=== PATIENT | female | born 1980 | race Asian ===

== ENCOUNTER → 2020-02-15 | Outpatient (CLI) | payer MEDICAID | LOC: ZCOL.LAB 08:00 | DX: Z20.828 Contact with and (suspected) exposure to other viral communicable diseases (principal) ==

== ENCOUNTER 2020-02-19 07:46 | Inpatient (IN) | payer MEDICAID ==
[~2020-02-19] VITALS: Ht 165.1 cm; Wt 79.1 kg
[2020-02-19] VITALS (26 sets, daily range): BP systolic 80–120; BP diastolic 47–75; PULSE 62–100; TEMP 98.4
[2020-02-19 09:20] LABS: BASO % 0.4 % (0.0-2.0); EOS # 0.2 (0.0-0.7); EOS % 1.7 % (0-4.0); GRAN # 6.4 (1.4-6.5); GRAN % 70.1 % (42.2-75.2); HEMATOCRIT 32.7 % (37.0-47.0); HEMOGLOBIN 10.7 g/dl (12.5-16.0); LYMPH # 1.9 (1.2-3.4); LYMPH % 20.5 % (20.0-51.0); MEAN CELL VOLUME 85 fl (80.0-100.0); MEAN CORPUSCULAR HEMOGLOBIN 28 pg (27.0-31.0); MEAN CORPUSCULAR HGB CONC 33 g/dl (33.0-37.0); MEAN PLATELET VOLUME 11.6 fl (7.4-10.4); MONO # 0.6 (0.1-0.6); MONO % 6.6 % (1.7-9.3); PLATELET COUNT 163 K/mm3 (130-400); RED BLOOD COUNT 3.84 M/mm3 (4.10-5.30)
--- NOTE | 2020-02-19 09:25 | NUR ---
Pt and spouse arrived ambulatory to unit at 0800. Pt placed gown over personal clothing and sat in bed when asked. Pt and spouse speak no croatian, dielectric embossing machine operator via phone service used for communication. EFM explained and placed, vitals taken. Pt denies vaginal bleeding or leaking of fluid, reports good movement, and denies contractions. IV started in LW, labs drawn, LR started per protocol. Assessment completed, consents discussed and verbal consent given. Pt signed with x as she stated she does not know how to write her name. Pt and spouse also request circumcision for baby boy. 08 - Roles to pt bedside. Communication via phone dielectric embossing machine operator with pt. SVE and AROM attempted, but pt bladder full. Physician requests pt use bathroom. 09 - Pt voided and back to bed. Roles back at bedside. AROM at this time, clear fluid noted. SVE per physician 4-/-2. No plan for pitocin at this time.
--- NOTE | 2020-02-19 11:52 | NUR ---
Over documentation interval of [id number], baseline change from 145 to 150 at 1042, then again from 150 to 155 at 1054. Pt repositioning self often over interval. Variable decels noted at 1048 and 1053. 1104 - Pt off monitors to use bathroom. 1108 - Pt back on monitors with baseline of 150 Acceleration of FHR noted at 1119, returning to baseline of 150 at 1123. Acceleration with contraction noted at [id number], followed by shallow late deceleration with FHR christie of 135, then returning to previous baseline of 145.
--- NOTE | 2020-02-19 16:41 | NUR ---
1530 - 1600 documentation interval baseline FHR started at 145 with variable decel noted at 1528. Following contraction at 1543, FHR baseline changed to 135. Moderate variability remains. Pt repositioned self at 1552, FHR monitor documenting maternal heart rate at 1555. Monitors repositioned and returned to monitoring FHR at 1556.
--- NOTE | 2020-02-19 16:47 | NUR ---
1606 - Dr. Orona on unit. SVE per physician 5-/-2. Orders received to start pitocin per induction protocol. Pitocin started at 2mu/ml/hr at 1616. Dr. Orona remains on unit.
--- NOTE | 2020-02-19 18:38 | NUR ---
173 - SVE /1. Recurrent early decelerations with contractions, FHR baseline remains [address] Orona remains on unit and monitoring FHR. Pt feeling pressure with contractions and increasing discomfort. 1744 - Pt repositioned RL. 1746 - Dr. Orona to pt bedsdie. SVE per provider -/-1. Physician remains in room at pt bedside. Pt repositioned in bed with feet in stirrups, bed broken down for delivery per physician. Retail Loan Originator Assistant on speaker phone for communication with pt. 1757 - SVE per Dr. Orona 0. Nursery RN called to bedside. Pt pushing with contractions with RN and physician at bedside. 1805 - Male infant delivered spontaneously after 40 second shoulder dystocia by Dr. Orona. Loose nuchal x1, left hand presentation with shoulder. placed on mother's abdomen where cord clamped and cut. Care of infant transferred to Jannet Roldan RN of nursery. Cord blood and gases collected by Dr. Orona. Placenta spontaneously delivered by Dr. Orona at 1809. Pitocin started per protocol. Perineum intact per Dr. Orona, pericare provided by physician. 1814 - Pt repositioned for comfort, ice pack placed on perineum. Pt requests pain medication but denies further needs at this time. Care of pt transferred to Jennifer Kaur RN.
--- NOTE | 2020-02-19 20:00 | NUR ---
Using [employer] tele[employer] manager for translation and instruction. Pt up to the bathroom with standby assist. Pt unable to void as urine was expressed during previous fundal check. Faith-care done. Pt transferred to room 215 ambulatory. Oriented to room, bed and call light within reach.
[2020-02-20 00:30] VITALS: BP 89/53; PULSE 68; TEMP 98.3
[2020-02-20 04:15] VITALS: BP 89/59; PULSE 68; TEMP 98.2
[2020-02-20] MEDS ORDERED: IBU600 MG PO (08:24)
[2020-02-20 08:30] VITALS: BP 95/57; PULSE 73; TEMP 97.8
[2020-02-20 16:43] VITALS: BP 97/75; PULSE 89; TEMP 98.3
--- NOTE | 2020-02-20 20:30 | NUR ---
RN TO BEDSIDE WITH OPHTHALMIC TECHNICIAN APPRENTICE SERVICES ON THE PHONE. DISCUSSED DISCHARGE INSTRUCTIONS WITH PATIENT THROUGH OPHTHALMIC TECHNICIAN APPRENTICE. ANSWERED QUESTIONS AND PATIENT VERBALIZED UNDERSTANDING. SIGNED PAPERS WITH AN 'X' BECAUSE PATIENT DOES NOT SPEAK, READ OR WRITE GUINEAN.
== END 2020-02-20 20:50 | disposition home or self-care (01) | DRG 807 ==
LOC: OB 07:46 → LDR 07:47 → OB 07:47 → LDR 14:20 → OB 20:34
PROVIDERS: ADMIT Obstetrics & Gynecology
PROC: 10E0XZZ Delivery of Products of Conception, External Approach (ICD-10-PCS; principal; 2020-02-19)
DX: O66.0 Obstructed labor due to shoulder dystocia (principal); Z37.0 Single live birth; Z3A.40 40 weeks gestation of pregnancy; Z3A.39 39 weeks gestation of pregnancy
CPT/HCPCS: J2590; J7120

== ENCOUNTER → 2020-06-24 | Outpatient (CLI) | payer MEDICAID ==
[~2020-06-24] MED LIST: IBU600 MG PO
== END ==
LOC: COL.RAD 09:57
DX: M54.5 Low back pain (principal); M54.6 Pain in thoracic spine; M53.3 Sacrococcygeal disorders, not elsewhere classified; Z97.5 Presence of (intrauterine) contraceptive device

== ENCOUNTER 2021-06-07 13:19 | Emergency (ER) | payer MEDICAID ==
[~2021-06-07] VITALS: Ht 170.2 cm; Wt 84.1 kg
[2021-06-07 13:25] VITALS: TEMP 97.7
[2021-06-07 13:59] LABS: BASO # 0.1 K/mm3 (0.0-0.2); BASO % 0.8 % (0.0-2.0); EOS # 0.2 K/mm3 (0.0-0.7); EOS % 3.1 % (0.0-4.0); GRAN # 3.5 K/mm3 (1.4-6.5); GRAN % 53.5 % (42.2-75.2); HEMOGLOBIN 10.9 g/dl (12.5-16.0); LYMPH # 2.3 K/mm3 (1.2-3.4); LYMPH % 35.1 % (20.0-51.0); MEAN CELL VOLUME 80 fl (80.0-100.0); MEAN CORPUSCULAR HEMOGLOBIN 26 pg (27-31); MEAN CORPUSCULAR HGB CONC 33 g/dl (33.0-37.0); MEAN PLATELET VOLUME 10.7 fl (7.4-10.4); MONO # 0.5 K/mm3 (0.1-0.6); MONO % 7.2 % (1.7-9.3); PLATELET COUNT 205 K/mm3 (130-400); RED BLOOD COUNT 4.13 M/mm3 (4.10-5.30)
[2021-06-07 14:02] LABS: HEMATOCRIT 33.1 % (37.0-47.0)
[2021-06-07 14:07] LABS: ALANINE AMINOTRANSFERASE 44 U/L (0-55); ALBUMIN 3.9 gm/dL (3.5-5.0); ALKALINE PHOSPHATASE 82 U/L (40-150); ANION GAP 11 mmol/L (7-16); AST,SGOT 59 U/L (5-34); BILIRUBIN,TOTAL 0.3 mg/dL (0.2-1.2); BLOOD UREA NITROGEN 16 mg/dL (7-19); CALCIUM 8.9 mg/dL (8.4-10.2); CARBON DIOXIDE 22 mmol/L (22-29); CHLORIDE 106 mmol/L (98-107); CREATININE, serum 0.65 mg/dL (0.57-1.11); GLUCOSE 98 mg/dL (70-99); LIPASE 22 U/L (8-78); POTASSIUM 3.6 mmol/L (3.5-4.5); SODIUM 139 mmol/L (136-145); TOTAL PROTEIN 7.1 gm/dL (6.2-8.1)
[2021-06-07 14:15] LABS: TROPONIN-I < 0.010 ng/mL (0.00-0.033)
[2021-06-07 14:55] LABS: COLLECTION METHOD CLEAN CATCH
[2021-06-07 15:13] LABS: PH 6 (5-8); SQUAMOUS EPITHELIAL 0-2 /hpf (0-10); URINE APPEARANCE Clear (CLEAR/HAZY); URINE BACTERIA None Seen /hpf (NONE SEEN); URINE BILIRUBIN Negative (NEGATIVE); URINE BLOOD Negative (NEGATIVE); URINE COLOR Straw (YELLOW); URINE GLUCOSE Negative (NEGATIVE); URINE KETONE Negative (NEGATIVE); URINE LEUKOCYTE ESTERASE Negative (NEGATIVE); URINE NITRATE Negative (NEGATIVE); URINE PROTEIN(semi-quant) Negative (NEGATIVE); URINE RBC 0-2 /hpf (0-2); URINE UROBILINOGEN Negative (NEGATIVE)
[2021-06-07 16:20] VITALS: BP 107/66; PULSE 65
== END 2021-06-07 16:20 | disposition home or self-care (01) ==
LOC: COL.ER 13:19
PROVIDERS: Emergency Medicine; Nurse Practitioner Family
DX: K80.50 Calculus of bile duct without cholangitis or cholecystitis without obstruction (principal)
CPT/HCPCS: J3010

== ENCOUNTER 2021-06-08 14:15 | Outpatient (RCR) | payer MEDICAID | END 2021-06-16 | disposition still patient (30) | LOC: MKS.ESL.PT | DX: M54.50 Low back pain, unspecified (principal); G89.29 Other chronic pain ==

== ENCOUNTER 2021-06-27 09:22 | Day surgery (SDC) | payer MEDICAID ==
[2021-06-27] VITALS (9 sets, daily range): BP systolic 101–115; BP diastolic 50–90; PULSE 86–96; TEMP 97.7–98.1
[~2021-06-27] VITALS: Ht 165.1 cm; Wt 84.5 kg
[2021-06-27] MEDS ORDERED: NORCO 325 MG-51 TAB PO (12:30)
--- NOTE | 2021-06-27 13:00 | NUR ---
The patient arrived back to [place] [facility] from the recovery room at this time. The patient appears drowsy but arouses to her name. The patient has three bandaids to her abdomen that appear clean, dry and intact. Post operative vital signs were started at this. The patient's is at her bedside at this time. Call light is within reach. Will continue to monitor the patient.
--- NOTE | 2021-06-27 13:15 | NUR ---
The patient appears to be resting comfortably on the cart. The patient's remains at her bedside. Call light is within reach. Will continue to monitor the patient.
--- NOTE | 2021-06-27 13:30 | NUR ---
The patient's called her brother who speaks Turkish and can translate her [place] language of [place]. He states that the patient is in pain and would like medication. She agreed to try some applesauce and water. Will be given a PRN dose of pain medication after she eats some food.
--- NOTE | 2021-06-27 13:40 | NUR ---
The patient was given a PRN dose of [place] one tab to help relieve the reported pain. Call light is within reach. at bedside.
--- NOTE | 2021-06-27 14:15 | NUR ---
The patient reports through her brother ,that has been translating for her, that she still has pain and reports it as pressure. She also reports feeling "sick". The nurse educated the patient through the brother that she is going to have pain for a few days since she had surgery today. The pressure she feels is most likely gas that was left behind after surgery. She also educated her that most patient's after a cholecystectomy report feeling nauseated. She appears to have understanding and has no further questions.
--- NOTE | 2021-06-27 14:45 | NUR ---
The patient appears to be resting comfortably on the cart with her eyes closed. The patient asked if she wanted to ambulate to the bathroom and she denies needing to void at this time. Will continue to monitor the patient.
--- NOTE | 2021-06-27 15:50 | NUR ---
The patient ambulated to the batroom with the stand by assistance of the nurse and her at this time. She appeared to tolerate the activity well and voided without difficulty. The patient's IV was removed and a pressure dressing was applied to the site. The nurse instructed the patient to get dressed and notify the staff when they have an friend available to help interpret their discharge instructions.
--- NOTE | 2021-06-27 16:15 | NUR ---
Discharge instructions were reviewed with patient and her and the help of an freelance interpreter/translator. Questions were answered from the patient and her and they both verbalized understanding. The patient is dressed and ready to be esocorted out.
--- NOTE | 2021-06-27 16:30 | NUR ---
The patient was escorted out via wheelchair to a private vehicle by KENNEY Hanson. The patient's belongings and discharge paperwork were sent with her. The patient's is present to drive her home.
== END 2021-06-27 16:30 | disposition home or self-care (01) ==
LOC: SDCO 09:22
DX: K80.10 Calculus of gallbladder with chronic cholecystitis without obstruction (principal); Z79.899 Other long term (current) drug therapy
CPT/HCPCS: J0690; J1885; J2405; J2704; J3010; J7120; Q9967

== ENCOUNTER → 2022-02-01 | Outpatient (CLI) | payer MEDICAID ==
[~2022-02-01] MED LIST changes: +NORCO 325 MG-51 TAB PO
== END ==
LOC: COL.RAD 10:06
DX: M25.561 Pain in right knee (principal)

== ENCOUNTER → 2022-03-06 | Outpatient (CLI) | payer MEDICAID | LOC: COL.RAD 09:26 | DX: R10.9 Unspecified abdominal pain (principal); Z87.442 Personal history of urinary calculi; Z90.49 Acquired absence of other specified parts of digestive tract ==

== ENCOUNTER 2022-06-27 16:15 | Outpatient (RCR) | payer MEDICAID | END 2022-07-17 | disposition home or self-care (01) | LOC: WSPT | DX: M25.562 Pain in left knee (principal) ==

== ENCOUNTER 2024-01-28 14:08 | Emergency (ER) | payer MEDICAID ==
[~2024-01-28] VITALS: Ht 165.1 cm; Wt 90.2 kg
[2024-01-28 14:13] VITALS: BP 114/78; TEMP 98.5
[2024-01-28 15:18] VITALS: PULSE 80
== END 2024-01-28 15:18 | disposition home or self-care (01) ==
LOC: COL.ER 14:08
DX: S61.213A Laceration without foreign body of left middle finger without damage to nail, initial encounter (principal); Z23 Encounter for immunization; W26.8XXA Contact with other sharp object(s), not elsewhere classified, initial encounter; Y93.E5 Activity, floor mopping and cleaning; Y92.009 Unspecified place in unspecified non-institutional (private) residence as the place of occurrence of the external cause

== ENCOUNTER 2024-02-08 12:18 | Emergency (ER) | payer MEDICAID ==
[~2024-02-08] VITALS: Ht 162.6 cm; Wt 90.3 kg
[2024-02-08 12:24] VITALS: BP 105/75; PULSE 78; TEMP 98.1
[2024-02-08] MEDS ORDERED: CEPHALEXIN500 M1 PO (13:45)
== END 2024-02-08 14:08 | disposition home or self-care (01) ==
LOC: COL.ER 12:18
DX: S61.203A Unspecified open wound of left middle finger without damage to nail, initial encounter (principal); X58.XXXA Exposure to other specified factors, initial encounter

== ENCOUNTER 2024-03-19 20:34 | Emergency (ER) | payer MEDICAID ==
[~2024-03-19] VITALS: Ht 165.1 cm; Wt 87.5 kg
[~2024-03-19 20:34] MED LIST changes: +CEPHALEXIN500 M1 PO
[2024-03-19] MEDS ORDERED: Ibuprofen 400 MG TAB PO ONE (21:15)
[2024-03-19] MEDS ORDERED: Acetaminophen 500 MG TAB PO ONE (21:15)
[2024-03-19 21:37] LABS: BASO % 0.4 % (0.0-2.0); EOS % 0.1 % (0.0-4.0); GRAN # 5.7 K/mm3 (1.4-6.5); GRAN % 77.8 % (42.2-75.2); HEMATOCRIT 40.9 % (37.0-47.0); HEMOGLOBIN 13.9 g/dl (12.5-16.0); LYMPH # 1.1 K/mm3 (1.2-3.4); LYMPH % 14.3 % (20.0-51.0); MEAN CELL VOLUME 88 fl (80.0-100.0); MEAN CORPUSCULAR HEMOGLOBIN 30 pg (27-31); MEAN CORPUSCULAR HGB CONC 34 g/dl (33.0-37.0); MEAN PLATELET VOLUME 11.1 fl (7.4-10.4); MONO # 0.5 K/mm3 (0.1-0.6); MONO % 7.1 % (1.7-9.3); PLATELET COUNT 144 K/mm3 (130-400); RED BLOOD COUNT 4.67 M/mm3 (4.10-5.30); REDCELL DISTRIBUTION WIDTH-CV 12.7 % (11.5-14.5)
[2024-03-19] MEDS ORDERED: LR 1,000 ML IV ONE ×2 (21:45→22:30)
[2024-03-19 21:54] LABS: ALBUMIN 3.9 g/dL (3.5-5.0); BILIRUBIN,TOTAL 0.4 mg/dL (0.2-1.2); CALCIUM 9.2 mg/dL (8.4-10.2); CREATININE, serum 0.85 mg/dL (0.57-1.11); POTASSIUM 3.7 mEq/L (3.5-4.5); TOTAL PROTEIN 7.3 g/dl (6.2-8.1)
[2024-03-19 22:47] LABS: COLLECTION METHOD CLEAN CATCH
[2024-03-19 22:54] LABS: PH 6.5 (5.0-8.5); URINE APPEARANCE CLEAR (CLEAR/HAZY); URINE BLOOD NEGATIVE (NEGATIVE); URINE COLOR YELLOW (YELLOW); URINE GLUCOSE NEGATIVE (NEGATIVE); URINE KETONE 2+ (NEGATIVE); URINE NITRATE NEGATIVE (NEGATIVE); URINE PROTEIN(semi-quant) NEGATIVE (NEGATIVE)
[2024-03-19] MEDS ORDERED: dexAMETHasone 10 MG/ML VIAL PO ONE (23:15)
[2024-03-19] MEDS ORDERED: Doxycycline Monohydrate 100 MG CAP PO ONE (23:15)
[2024-03-19] MEDS ORDERED: DOXYCYCLINE 10100 MG PO (23:16)
[2024-03-19 23:26] VITALS: TEMP 98.2
[2024-03-20 00:19] VITALS: BP 92/63; PULSE 86
== END 2024-03-20 00:19 | disposition home or self-care (01) ==
LOC: COL.ER 20:34
PROVIDERS: Emergency Medicine
DX: J06.9 Acute upper respiratory infection, unspecified (principal)
CPT/HCPCS: J1100; J7120